=== PATIENT | male | born 1995 | race Caucasian/White ===

== ENCOUNTER 2016-08-04 21:49 | Emergency (ER) | payer OTHER ==
[~2016-08-04] VITALS: Ht 182.9 cm; Wt 160.0 kg
[~2016-08-04 21:49] MED LIST: ADDERALL10 MG PO; FOCALIN XR10 MG PO; NAPROSYN500 MG PO; RISPERDAL0.5 MG PO; VYVANSE20 MG PO; ZANTAC75 MG PO; ZOLOFT50 MG PO; [UNRECOGNIZED DRUG - REMARK]
[2016-08-04 22:32] LABS: HEMATOCRIT 41.2 % (38.0-50.0); MCV 88.8 FL (86-99); MEAN PLAT.VOLUME 10.1 uM^3 (9.0-12.4); PLATELET COUNT 252 K/uL (156-360); RBC DIS.WIDTH-CV 13.2 % (11.8-14.6); RBC DIS.WIDTH-SD 42.7 % (39-53); RED BLOOD COUNT 4.64 M/uL (4.00-5.50); WHITE BLOOD COUNT 11.2 K/uL (4.1-10.2)
[2016-08-04 22:46] LABS: CHLORIDE 107 mEq/L (99-109); POTASSIUM 3.2 mEq/L (3.7-5.4); SODIUM 142 mEq/L (136-147)
[2016-08-04 22:48] LABS: GLUCOSE 119 mg/dL (70-99)
[2016-08-04 22:49] LABS: ANION GAP 14 MEQ/L (2-14)
[2016-08-04 22:50] LABS: TOTAL BILIRUBIN 0.3 mg/dL (0.0-1.0)
[2016-08-04 22:51] LABS: SERUM ETHYL ALCOHOL < 10 mg/dL
[2016-08-04 22:52] LABS: ALKALINE PHOSPHATASE 70 IU/L (3-129); GFR ESTIMATE (CALCULATED) > 59 mL/min/
[2016-08-04 22:53] LABS: UREA NITROGEN (BUN) 12 mg/dL (9-23)
[2016-08-04 23:34] VITALS: BP 129/73
== END 2016-08-04 23:36 | disposition home or self-care (01) ==
LOC: EME 21:49
PROVIDERS: Emergency Medicine
DX: F19.10 Other psychoactive substance abuse, uncomplicated (principal); E87.6 Hypokalemia; S00.12XA Contusion of left eyelid and periocular area, initial encounter; S40.212A Abrasion of left shoulder, initial encounter; S40.211A Abrasion of right shoulder, initial encounter; R11.2 Nausea with vomiting, unspecified; F17.200 Nicotine dependence, unspecified, uncomplicated
CPT/HCPCS: 80053; 81003; 85027; 99281; 99285; G0480; J7030